=== PATIENT | female | born 2000 | race Native Hawaiian/Other Pacific Islander ===

== ENCOUNTER 2023-03-26 23:58 | Emergency (ER) | payer OTHER ==
[2023-03-27 00:10] VITALS: TEMP 98.6
--- NOTE | 2023-03-27 00:20 | ERPHSYRPT ---
- History of Present Illness Time Seen by Provider: 03/27/23 00:15 Source: patient Physician History: pt has had itching redness face, arms and general for more than a month, but no new exposures known. No resp symptoms but had throat symptoms a few days ago which resolved although no problem swallowing and no SOBreath. No CP, No Abd pain. No joint pain. No recent change in meds. Has been on the lamictal for about a year without any problems. She has not seen any medical provider or tried any treatments. discussed risks/benefits of prescri[ption steroid, and H yael Tx and pt wis hes to proceed. Timing/Duration: week(s), intermittent Quality: itchy Severity: moderate Location: face, extremities, generalized Possible Causes: no cause identified Associated Symptoms: rash, other (throat symptoms resolved) Allergies/Adverse Reactions: diphenhydramine [From Benadryl] Adverse Reaction (Severe, Verified 03/27/23 00:06) Difficulty Breathing - Review of Systems Constitutional: No Fever, No Chills Eyes: No Symptoms Ears, Nose, & Throat: No Symptoms, Other (throat sensation a few days ago - resolved) Respiratory: No Cough, No Dyspnea, No Stridor, No Wheezing Cardiac: No Chest Pain, No Edema, No Syncope Abdominal/Gastrointestinal: No Abdominal Pain, No Nausea, No Vomiting, No Diarrhea Genitourinary Symptoms: No Dysuria Musculoskeletal: No Symptoms, No Back Pain, No Neck Pain Skin: Pruritis, Rash, Other (erythema) Neurological: No Dizziness, No Focal Weakness, No Sensory Changes Psychological: No Symptoms Endocrine: No Symptoms Hematologic/Lymphatic: No Symptoms Immunological/Allergic: No Symptoms All Other Systems: Reviewed and Negative - Past Medical History Pertinent Past Medical History: Yes Neurological History: No Pertinent History ENT History: No Pertinent History Cardiac History: No Pertinent History Respiratory History: No Pertinent History Endocrine Medical History: No Pertinent History Musculoskeletal History: No Pertinent History GI Medical History: No Pertinent History History: No Pertinent History Psycho-Social History: Bipolar Female Reproductive Disorders: No Pertinent History - Past Surgical History Past Surgical History: No Neuro Surgical History: No Pertinent History Cardiac: No Pertinent History Respiratory: No Pertinent History Gastrointestinal: No Pertinent History Genitourinary: No Pertinent History Musculoskeletal: No Pertinent History Female Surgical History: No Pertinent History - Social History Drug Use: none - Nursing Vital Signs Nursing Vital Signs: Initial Vital Signs Temperature 98.6 F 03/27/23 00:09 Pulse Rate 107 H 03/27/23 00:09 Respiratory Rate 18 03/27/23 00:09 Blood Pressure 129/101 03/27/23 00:09 O2 Sat by Pulse Oximetry 100 03/27/23 00:09 Pain Scale Pain Intensity 0 - Physical Exam General Appearance: no apparent distress, alert Eye Exam: PERRL/EOMI, eyes nml inspection Ears, Nose, Throat Exam: normal ENT inspection, pharynx normal, moist mucous membranes, No pharyngeal erythema Neck Exam: normal inspection, non-tender, supple, full range of motion, No meningismus Respiratory Exam: normal breath sounds, lungs clear, No respiratory distress, No crackles/rales, No rhonchi, No wheezing, No stridor Cardiovascular Exam: regular rate/rhythm, normal heart sounds Gastrointestinal/Abdomen Exam: soft, No tenderness, No mass Pelvic Exam: deferred Rectal Exam: deferred Back Exam: normal inspection, normal range of motion, No CVA tenderness, No vertebral tenderness Extremity Exam: normal inspection, normal range of motion Neurologic Exam: alert, oriented x 3, cooperative, normal mood/affect, sensation nml, No motor deficits Skin Exam: warm, dry, rash, pale (erythemaous areas nontender) SpO2 Interpretation: normal SpO2: 100 O2 Delivery: Room Air - Course Nursing assessment & vital signs reviewed: Yes Ordered Tests: Active Orders 24 hr Category Date Time Status CBC W DIFF Stat Lab 03/27/23 01:15 Completed Medication Summary Discontinued Medications Generic Name Dose Route Start Last Admin Trade Name Ana PRN Reason Stop Dose Admin Famotidine 20 mg 03/27/23 00:40 03/27/23 01:11 Famotidine 20 Mg Tablet PO 03/27/23 00:41 20 mg STAT ONE Administration Famotidine Confirm 03/27/23 01:08 Famotidine 20 Mg Tablet Administered 03/27/23 01:09 Dose 20 mg .ROUTE .STK-MED ONE Prednisone 60 mg 03/27/23 00:27 03/27/23 00:36 Prednisone 20 Mg Tablet PO 03/27/23 00:28 60 mg STAT ONE Administration Prednisone Confirm 03/27/23 00:35 Prednisone 20 Mg Tablet Administered 03/27/23 00:36 Dose 60 mg .ROUTE .STK-MED ONE Promethazine HCl 25 mg 03/27/23 00:45 03/27/23 01:10 Promethazine Hcl 25 Mg Tablet PO 03/27/23 00:46 25 mg STAT ONE Administration Promethazine HCl Confirm 03/27/23 01:08 Promethazine Hcl 25 Mg Tablet Administered 03/27/23 01:09 Dose 25 mg .ROUTE .STK-MED ONE Lab/Rad Data: Laboratory Result Diagrams 03/27/23 01:15 Laboratory Results 03/27/23 Range/Units 01:15 WBC 9.2 (4.0-10.5) x10^3/uL RBC 4.67 (4.1-5.4) x10^6/uL Hgb 12.9 (12.0-16.0) g/dL Hct 40.8 (35-47) % MCV 87.4 (78-100) fL MCH 27.6 (26-32) pg MCHC 31.6 L (32-36) g/dL RDW 12.7 (11.5-14.0) % Plt Count 362 (150-450) x10^3/uL MPV 10.2 (7.5-11.0) fL Gran % 54.2 (36.0-66.0) % Immature Gran % (Auto) 0.2 (0.00-0.4) % Nucleat RBC Rel Count 0.0 (0.00-0.1) % Eos # (Auto) 0.21 (0-0.5) x10^3/uL Immature Gran # (Auto) 0.02 (0.00-0.03) x10^3u/L Absolute Lymphs (auto) 3.21 (1.0-4.6) x10^3/uL Absolute Monos (auto) 0.69 (0.0-1.3) x10^3/uL Absolute Nucleated RBC 0.00 (0.00-0.01) x10^3u/L Lymphocytes % 34.8 (24.0-44.0) % Monocytes % 7.5 (0.0-12.0) % Eosinophils % 2.3 (0.00-5.0) % Basophils % 1.0 (0.0-0.4) % Absolute Granulocytes 5.01 (1.4-6.9) x10^3/uL Basophils # 0.09 (0-0.4) x10^3/uL - Progress Progress: improved, re-examined Progress Note: 03/27/23 02:36 a call has been placed to the medical provider covering for the pt to consult regarding stopping the lamictal and beginning coverage with a different med. 03/27/23 02:57 pts health safety and environment manager provider did not return out call so we are trying again. 03/27/23 04:15 The psych consultation service declined to provide any consultation in the absence of a transfer request, and the pt has no psychiatric symptoms at this time to warrant consideration to support such a request. I had a discussion with the pt to go over the presentation and potential risks of the rash and for progression: THe rash has been relatively stable and present for a number of weeks. We cannot predict the exact risk for progression to a more serious rash or complication, but are providing meds that are used to reduce allergic responses. Stopping the lamictal has its own risk and her bipolar condition is well controlled by hx on this. We cannot be sure the cause of the rash or if it is from lamictal. That decision is best made in coordination with her primary medical provider who is not available tonight for consultation. The pt wishes to return home and contact her PMD/PCP Tuesday to discuss considering changing to a different Bipolar med or whether to stay the course. She is comfortable to assume this risk has a current normal mental status and has the capacity to make this choice. She prefers this to a medical transfer or admission at this time. Counseled pt/family regarding: diagnosis, need for follow-up Medical Desision Making - Discussion of managment Reviewed:: Need for additional workup Agreed on:: Treatment plan, need for follow-up - Diagnostic Testing Diagnostic test were ordered, analyzed, and reviewed by me: No - Risk of complications The pt has a mod risk of morbidity or mortality based on: Need for prescription drug management The pt has a high risk of morbidity or mortality based on: Decision regarding hospitilization or escalation of hosp level of care - Departure Departure Disposition: Home Clinical Impression: Rash and nonspecific skin eruption Condition: Good Critical Care Time: No Referrals: [facility] [Primary Care Provider] - Follow up/PCP as directed Instructions: Skin Rash (DC), Tyler-Jeffrey Syndrome (DC) Additional Instructions: We have not yet determined the cause for your rash but some kind of reaction from your lamictal could be possible although the rash appear stable at this time. We are providing a handout for Osei Jeffrey - the most severe form of such a rash so that you will know what to look for even though there is no evidence for that in you at this time. Call your DrNatalie Tuesday to arrange follow-up and consider if changing to a differ ent bipolar med might be warranted. We will call in prescriptions for you to get tomorrow to treat your rash. you may also take over the counter Pepcid along with those meds to help your rash. Return or see Dr Estrada Meantime if rash is getting worse, trouble swallowing or breathing, throat symptoms, or any other concerns. Prescriptions: Methylprednisolone Packet [Medrol Dosepack] 4 mg PO UD #30 packet Promethazine HCl 25 mg [Phenergan 25 mg] 25 mg PO HS PRN PRN #14 tablet PRN Reason: Itching
[2023-03-27] MEDS ORDERED: DELTASONE 20 MG PO ONE (00:27)
[2023-03-27] MEDS ORDERED: DELTASONE 20 MG ONE (00:35)
[2023-03-27] MEDS ORDERED: Pepcid 20 MG PO ONE (00:40)
[2023-03-27] MEDS ORDERED: PHENERGAN 25 MG PO ONE (00:45)
[2023-03-27] MEDS ORDERED: Pepcid 20 MG ONE (01:08)
[2023-03-27] MEDS ORDERED: PHENERGAN 25 MG ONE (01:08)
[2023-03-27 01:17] LABS: Absolute Neutrophil Ct (ANC) 5.01 x10^3/uL (1.4-6.9); Basophil (Absolute #) 0.09 x10^3/uL (0-0.4); Eosinophil % 2.3 % (0.00-5.0); Eosinophil (Absolute #) 0.21 x10^3/uL (0-0.5); Hematocrit 40.8 % (35-47); Hemoglobin 12.9 g/dL (12.0-16.0); IMMATURE GRAN # 0.02 x10^3u/L (0.00-0.03); IMMATURE GRAN % 0.2 % (0.00-0.4); Lymphocyte (Absolute #) 3.21 x10^3/uL (1.0-4.6); Lymphocytes % 34.8 % (24.0-44.0); Mean Cell Volume 87.4 fL (78-100); Mean Corpuscular Hemoglobin 27.6 pg (26-32); Mean Corpuscular Hgb Concent. 31.6 g/dL (32-36); Mean Platelet Volume 10.2 fL (7.5-11.0); Monocyte (Absolute #) 0.69 x10^3/uL (0.0-1.3); Monocytes % 7.5 % (0.0-12.0); Neutrophil % 54.2 % (36.0-66.0); Platelet Count 362 x10^3/uL (150-450); Red Blood Count 4.67 x10^6/uL (4.1-5.4); Red Cell Distribution Width 12.7 % (11.5-14.0); White Blood Count 9.2 x10^3/uL (4.0-10.5)
[2023-03-27 04:11] VITALS: BP 130/81; PULSE 93; RESP 17
[2023-03-27 04:39] VITALS: O2SAT 100
== END 2023-03-27 04:58 | disposition home or self-care (01) ==
LOC: ED 23:58
DX: R21 Rash and other nonspecific skin eruption (principal); Z79.899 Other long term (current) drug therapy; Z79.52 Long term (current) use of systemic steroids
CPT/HCPCS: 36415; 85025; 99283; A9270-GY